=== PATIENT | female | born 1975 | race Native Hawaiian/Other Pacific Islander ===

== ENCOUNTER → 2021-02-07 | Outpatient (CLI) | payer OTHER, BC ==
--- NOTE | 2021-02-07 20:08 | Diagnostic Imaging Report ---
INDICATION: Neck pain COMPARISON: None available TECHNIQUE: 7 radiographs of the cervical spine dated 02/07/2021. FINDINGS: Alignment of the cervical spine is well maintained without significant anterolisthesis or retrolisthesis. The vertebral body heights are well-maintained. Disc space heights are well-maintained. No abnormal translational motion. Minimal scattered facet joint degenerative changes. No high-grade osseous neural foraminal stenosis. The dens is unremarkable. The lateral masses are well seated. Prevertebral soft tissues are unremarkable. Minimal nuchal ligament calcifications. IMPRESSION: No acute osseous abnormality with mild scattered degenerative changes. Dictated by: Dictated on workstation # [id number]
== END ==
LOC: RAD 18:58
PROVIDERS: ATTEND Nurse Practitioner Family
DX: M47.812 Spondylosis without myelopathy or radiculopathy, cervical region (principal); G44.89 Other headache syndrome; V89.2XXA Person injured in unspecified motor-vehicle accident, traffic, initial encounter
CPT/HCPCS: 72052